=== PATIENT | female | born 1980 | race Caucasian/White ===

== ENCOUNTER 2016-12-13 09:49 | Emergency (ER) | payer BC ==
[~2016-12-13] VITALS: Ht 175.3 cm; Wt 72.7 kg
[2016-12-13 12:07] LABS: ADD MIUA? YES; BILIRUBIN NEGATIVE; BLOOD NEGATIVE; COLOR YELLOW ((YELLOW)); GLUCOSE (STRIP) NEGATIVE; KETONES 20; LEUKOCYTES SMALL; NITRITE NEGATIVE; PROTEIN (STRIP) NEGATIVE; SPECIFIC GRAVITY 1.018 (1.000-1.030); UROBILINOGEN 0.2 MG/DL (0.2-1.0)
[2016-12-13 12:10] LABS: INTERNAL CONTROL VALID? YES
[2016-12-13 12:49] LABS: BACTERIA NONE SEEN /HPF; EPITHELIAL CELLS 2+ /HPF; MUCUS 4+ /LPF; RED BLOOD CELLS 0-5 /HPF (0-5); UCUL ADDED? NO
[2016-12-13] MEDS ORDERED: PREDNISONE10 MG PO (13:24)
[2016-12-13] MEDS ORDERED: BACLOFEN10 MG PO (13:24)
[2016-12-13] MEDS ORDERED: LORTAB 5-325 M1 EACH PO (13:24)
[2016-12-13 13:47] VITALS: BP 128/76
== END 2016-12-13 13:51 | disposition home or self-care (01) ==
LOC: EME 09:49
PROVIDERS: Nurse Practitioner Family
DX: M54.5 Low back pain (principal); M47.898 Other spondylosis, sacral and sacrococcygeal region; R20.2 Paresthesia of skin; F41.1 Generalized anxiety disorder
CPT/HCPCS: 72220; 81003; 84703; 99281; 99284; J1100; J3010